=== PATIENT | female | born 1940 | race Caucasian/White ===

== ENCOUNTER → 2016-11-07 | Outpatient (CLI) | payer MEDICARE ==
[~2016-11-07] MED LIST: AMLO5TAB22 PO; COZA50TA PO; FISH100020 OR; LEVO75TA3 PO; LORTA5 PO; OMEP20TA39 PO; PROP60CA PO; ZOLP10TA3 PO
[2016-11-07 13:36] LABS: C. DIFF EPI 027 PRESUMPTIVE NEGATIVE (NEGATIVE); C. DIFF TOXIN PCR NEGATIVE (NEGATIVE)
== END ==
LOC: ELAB 11:04
DX: R19.7 Diarrhea, unspecified (principal)
CPT/HCPCS: 87328; 87329; 87493; 87506